=== PATIENT | female | born 1990 | race Caucasian/White ===

== ENCOUNTER 2018-11-24 08:00 | Inpatient (IN) ==
[2018-11-24] MEDS ORDERED: Naloxone 0.4 MG/ML INJ IVP PRN (08:32)
[2018-11-24] MEDS ORDERED: Lidocaine 1% 20 ML MDV INFILT PRN (08:32)
[2018-11-24] MEDS ORDERED: Ondansetron 4 MG/2 ML VIAL IVP PRN (08:32)
[2018-11-24] MEDS ORDERED: Famotidine 20 MG/2 ML VIAL IVP PRN (08:32)
[2018-11-24] MEDS ORDERED: Metoclopramide 10 MG/2 ML VIAL IVP PRN (08:32)
[2018-11-24] MEDS ORDERED: Ringers Solution, Lactated 1,000 ML IVC SCH (08:45)
[2018-11-24] MEDS ORDERED: miSOPROStol 100 MCG TABLET PO ONE (08:45)
--- NOTE | 2018-11-24 08:58 | OB/GYN History & Physical ---
Date of Encounter: 11/24/18 Time of Encounter: 08:58 Assessment and Plan (1) 16 weeks gestation of Current visit: Yes Status: Acute (2) demise before 20 weeks with retention of fetus Current visit: Yes Status: Acute Admit to L&D for IOL Misoprostol 600mcg SL x 1 Recheck cervix in 4 hours [place] monitoring Pain management plan is epidural - may have upon request Anticipate of 12-[address] Escalante is evaluation specialist and is co-managing History of Present Illness Chief complaint: IOL for MAB HPI: Ms. Jarquin is a 28 year old female at 16 weeks 4 days gestation with an estimated date of of 05/07/19 dated by early ultrasound. She presents today for induction of labor secondary to MAB found at visit yesterday. She had been complaining of brownish discharge for the last 3 days in the morning. She reports last night she began cramping and this morning had a larger amount of blood. She was being seen by Dr. Grajeda. records are available electronically and have been reviewed. Labs: O- Rubella immune Varicella immune Serologies unknown Past Med Surg Social Fam HX - Past Medical History Medical history: arthritis Psychiatric history: depression - Past Surgical History Surgical History: cholecystectomy Additional surgical history: wisdom teeth - Social History Smoking Status: Never smoker Smokeless Tobacco Status: No Alcohol use: none Drug use: none - Family History Father Adopted: No Living Status: Still Living Hx Family Cardiac Disorders: No Hx Family Respiratory Disorders: No Hx Family Cancer: No Hx Family GI Disorders: No Hx Family Genitourinary Disorders: No Hx Family Endocrine Disorder: No Hx Family Musculoskeletal Disorders: No Hx Family Neuromuscular Disorders: No Hx Family Neurologic Disorders: No Hx Family HEENT Disorders: No Hx Family Autoimmune Disorders: No Hx Family Reproductive Disorders: No Hx Family Psychosocial Disorders: No Hx Family Medical Disorders: Yes (DVT, PE) Mother Adopted: No Living Status: Still Living Hx Family Cardiac Disorders: Yes (stent placement, HTN) Obstetrical History - Pregnancies : 1 Para: 0 Term: 0 : 0 Ab's: 0 Livin Medications and Allergies Diphenoxylate/Atropine 11/24/18 [History] Tablet 11/24/18 [History] Allergy/AdvReac Type Severity Reaction Status Date / Time No Known Allergies Allergy Verified 11/24/18 08:35 Review of System OB All systems PM: reviewed and no additional remarkable complaints except as stated Exam - Constitutional Constitutional: well developed, well nourished, mild distress - HEENT HEENT: PERRL, Normocephaly, Mucus Membranes Moist - Neck Neck exam: full ROM - Lungs Respiratory exam: CTAB - Cardiovascular Cardiovascular exam: RRR, +S1, +S2 - Breasts Breast: bilateral: normal - Abdomen Abdomen: Present: bowel sounds normal, gravid, non tender - Extremities Extremities exam: full ROM, normal capillary refill, normal inspection - Vulva Vulva: bilateral: normal - Vagina Vagina: Present: normal moisture - Cervix Dilation: 0 Effacement: 0 Station: -4 Results All other labs normal. - VTE Reasons for not Prescribing Prophylaxis: Treatment not Indicated - Low risk for VTE
[2018-11-24 09:14] LABS: Basophils % 0.3 %; Eosinophils # 0.1 K/mcL (0.0-0.6); Eosinophils % 1.3 %; Hematocrit 39.2 % (35.3-44.9); Hemoglobin 13.2 g/dL (11.5-15.4); Immature Granulocytes % 0.3 % (0-4); Lymphocytes # 1.7 K/mcL (0.6-4.6); Mean Corpuscular HGB Conc 33.7 g/dL (31.6-35.5); Mean Corpuscular Hemoglobin 29.5 pg (28.0-33.3); Mean Corpuscular Volume 87.7 fL (83.0-100.0); Mean Platelet Volume 10.1 fL (9.4-12.4); Monocytes # 0.4 K/mcL (0.0-1.3); Monocytes % 4.6 %; Neutrophils # 5.4 K/mcL (1.6-8.9); Platelet Count 284 K/mcL (140-400); Red Blood Count 4.47 M/mcL (3.82-4.97); Red Cell Distribution Width 13.4 % (11.5-14.5); Segmented Neutrophils % 71.5 %; White Blood Count 7.5 K/mcL (4.3-11.1)
[2018-11-24] MEDS ORDERED: Diphenoxylate/Atropine 1 TAB TABLET PO ONE (12:30)
[2018-11-24] MEDS: *HR* Nalbuphine 10 MG/ML AMPUL IVP PRN ×2 (12:58→18:51)
[2018-11-24] MEDS ORDERED: miSOPROStol 100 MCG TABLET PO SCH (13:48)
[2018-11-24] MEDS: miSOPROStol 100 MCG TABLET PO SCH ×2 (14:21→17:24)
--- NOTE | 2018-11-24 19:31 | Event Note ---
Date of Encounter: 11/24/18 Time of Encounter: 19:26 28yo female admitted for SAB measuring ~11+1wks GA by CRL, per due date should be 16+wks GA. Patient has been admitted with buccal misoprostol q4hr (400mcg) with a loading dose of 600mcg buccally. Because the patient was admitted with a CRL measuring 11+1wks GA and has been consistently failing medical management. Plan was made for the performance of a SUCTION D&C. Consent was signed. Minimal bleeding was appreciated (dark brown blood in vault). MD ZENON
[2018-11-24] MEDS ORDERED: Doxycycline 100 MG in 0.9 % Sodium Chloride Mini Bag 100 ML IVPB ONE (19:32)
[2018-11-24] MEDS ORDERED: *HR* HYDROmorphone (PF) 1 MG/ML SYRINGE IVP ONE (19:40)
--- NOTE | 2018-11-24 19:45 | Anesthesia Evaluation PreOp ---
Date of Encounter: 11/24/18 Time of Encounter: 19:45 - Past History Planned Operation: suction DC Cardiac History: Denies any Significant Hx Pulmonary History: Denies Any Significant HX [employer] History: Denies Any Significant HX Other Medical History: Denies Any Significant HX Anesthesia History: No Prior Anesthetic Complications : Yes Test: Positive Alcohol Use: none Drug use: none Medications and Allergies Diphenoxylate/Atropine 11/24/18 [History] Tablet 11/24/18 [History] Allergy/AdvReac Type Severity Reaction Status Date / Time No Known Allergies Allergy Verified 11/24/18 08:35 - Meds/Allergy Pre-op Review Medications Reviewed: Yes Allergies Reviewed: Yes Beta Blockers on Current Med List: No Anesthesia Results - Labs 11/24/18 08:34 Anesthesia Exam - HEENT Pupil (Motor): Pupils equal Mallampati: II Teeth: Normal Oral Opening: Greater than 3 - [employer] LOC: Oriented [employer] Motor: Normal RUE, Normal LUE, Normal RLE, Normal LLE, Normal Face [employer] Sensory: Normal: RUE, LUE, RLE, LLE, Face - Cardiac Rhythm: Regular Murmur: None JVD: No Carotid Bruit: No - Pulmonary Breath Sounds: bilateral Clear Respiratory Effort: Symmetrical Anesthesia Assess/Plan ASA Score: 1 Level of consciousness: Cooperative Anesthetic Plan: General
[2018-11-24] MEDS ORDERED: *HR* Propofol 200 MG/20 ML VIAL IVP ONE (20:00)
[2018-11-24] MEDS ORDERED: *HR* Midazolam HCl 2 MG/2 ML VIAL ONE (20:00)
[2018-11-24] MEDS ORDERED: *HR* FentaNYL (PF) 100 MCG/2 ML VIAL ONE ×2 (20:00→20:32)
[2018-11-24] MEDS ORDERED: *HR* Succinylcholine 200 MG/10 ML VIAL IVP ONE (20:02)
[2018-11-24] MEDS ORDERED: Lidocaine -MPF 2% 5 ML VIAL ONE (20:02)
[2018-11-24] MEDS ORDERED: *HR* Rocuronium Bromide 50 MG/5 ML VIAL ONE (20:03)
[2018-11-24] MEDS ORDERED: Acetaminophen IV 1,000 MG/100 ML INFUS..BTL IVPB ONE (20:10)
[2018-11-24] MEDS ORDERED: *HR* Promethazine 25 MG/ML VIAL IVP PRN (20:10)
[2018-11-24] MEDS ORDERED: Ondansetron 4 MG/2 ML VIAL IVP ONE (20:10)
[2018-11-24] MEDS ORDERED: *HR* Meperidine 25 MG/ML SYRINGE IVP PRN (20:10)
[2018-11-24] MEDS ORDERED: *HR* HYDROmorphone (PF) 1 MG/ML SYRINGE IVP PRN (20:10)
[2018-11-24] MEDS ORDERED: Ketorolac 30 MG/ML VIAL ONE (20:26)
[2018-11-24] MEDS ORDERED: Ondansetron 4 MG/2 ML VIAL ONE (20:26)
[2018-11-24] MEDS ORDERED: Dexamethasone 4 MG/ML VIAL ONE (20:26)
--- NOTE | 2018-11-24 20:55 | OB/GYN Procedure Note ---
Suction D&C - Diagnosis Date of procedure: 11/24/18 Pre-op diagnosis: missed Post-op diagnosis: same - Procedure Procedure: suction D&C Surgeon: Kerri Escalante Was there an office services assistant present: No Anesthesia Type: General Estimated blood loss (cc): 100 Complications: none Fluids: crystalloid Specimen: products of conception Disposition: floor Narrative: OPERATIVE REPORT: PATIENT NAME: ELE RODRIGUEZ : 1990 DIAGNOSIS: 1. MISSED AB MEASURING 11+1WKS GA POSTOPERATIVE DIAGNOSIS: SAME PROCEDURE: 1. SUCTION DILATION AND CURETTAGE EBL: 100ML IVF: 400ML UOP: 75ML YELLOW SPECIMENS: 1. PRODUCTS OF CONCEPTION CONSENT: Consent was signed for suction dilation and curettage after attempted delivery of products by medical management of buccal misoprostol. All risks were discussed with the patient including bleeding, infection, and perforation. One dose of IV doxycycline was administered to the patient preoperatively. PROCEDURE DETAILS: Patient was taken to OR where general anesthesia was found to be adequate. Patient was placed in the dorsal lithotomy position. Timeout was performed. Products of conception were found to be partially in vagina (intact) with the placenta and sac still in the uterus. We detached the fetus from the placenta, then removed the remaining contents from the cervix using gentle and slow traction with ringed forceps. All products were collected and sent to pathology for further examination. Using a weighted speculum, we then turned our attention to the cervix and grasped the anterior lip using a single-toothed tenaculum, pulling the cervix distally and straightening the cavity. We then used the suction dilated and curettage (7 luxembourger) to evacuate the remaining contents of the uterus. Multiple passes were taken and adequate placental tissue was removed, and also sent to pathology. We also use sharp curettage with 3 passes circumferentially until contraction of the uterus was appreciated. Hemostasis was found. Speculum and single-toothed tenaculum was then removed from the vagina. Cervix was hemostatic. All counts were correct x3. I was present for the entirety of the procedure, the patient tolerated the procedure well and recovered in the postoperative suite. MD ZENON
[2018-11-24] MEDS ORDERED: Rho Immune Globulin 1,500 UNIT SYRINGE IM ONE (21:59)
--- NOTE | 2018-11-24 22:45 | Discharge Summary ---
Date of Encounter: 11/24/18 Time of Encounter: 22:41 - Discharge Diagnosis (1) demise before 20 weeks with retention of fetus Priority: Primary Status: Acute Comments: 28yo female who presents at 16+1 by dates, measuring 11+1 wks GA by TVUS with a missed AB. 1. Missed AB - patient admitted on 11/23/2018 - started on buccal miso: 600mcg, 400mcg, 400mcg - patient was given multiple doses of nubain for pain management - still without bleeding, patient desired for suction D&C - D&C performed, uncomplicated with minimal bleeding - products of conception sent to pathology for review - given preoperative and postoperative doxycycline ABx (rx sent home with patient) - for pain management: given 5 tablets of 5mg oxycodone q6hr - otherwise recommendation for IBUprofen/tylenol - will have patient follow up in office next week to discuss contraception - recommendation at this time for pelvic rest until next appointment - RH positive, no rhogam required 2. MWB - normotensive - pain controlled s/p D&C - DC to home with f/u in 1 week in office Dispo: DC to home today s/p D&C, given rx for Doxycycline and Oxycodone (5# only), will f/u in office for postoperative visit to discuss contraception. MD ZENON - Discharge Medications Prescriptions: New Doxycycline 100 mg PO BID 7 Days #14 capsule Oxycodone HCl 5 mg PO Q6H 2 Days #5 tablet No Action Tablet Diphenoxylate/Atropine Home Medications: Diphenoxylate/Atropine 11/24/18 [History] Doxycycline 100 mg PO BID 7 Days #14 capsule 11/24/18 [Rx] Oxycodone HCl 5 mg PO Q6H 2 Days #5 tablet 11/24/18 [Rx] Tablet 11/24/18 [History] Allergies/Adverse Reactions: Allergy/AdvReac Type Severity Reaction Status Date / Time No Known Allergies Allergy Verified 11/24/18 08:35 Data Procedures and tests throughout hospitalization: Laboratory Tests 11/24/18 08:34 WBC 7.5 RBC 4.47 Hgb 13.2 Hct 39.2 MCV 87.7 MCH 29.5 MCHC 33.7 RDW 13.4 Plt Count 284 MPV 10.1 Immature Gran % 0.3 Seg Neutrophils % 71.5 Lymphocytes % 22.0 Monocytes % 4.6 Eosinophils % 1.3 Basophils % 0.3 Neutrophils # 5.4 Lymphocytes # 1.7 Monocytes # 0.4 Eosinophils # 0.1 Basophils # 0.0 Labs on day of discharge: Labs from last 24 hours 11/24/18 08:34 WBC 7.5 RBC 4.47 Hgb 13.2 Hct 39.2 MCV 87.7 MCH 29.5 MCHC 33.7 RDW 13.4 Plt Count 284 MPV 10.1 Immature Gran % 0.3 Seg Neutrophils % 71.5 Lymphocytes % 22.0 Monocytes % 4.6 Eosinophils % 1.3 Basophils % 0.3 Neutrophils # 5.4 Lymphocytes # 1.7 Monocytes # 0.4 Eosinophils # 0.1 Basophils # 0.0 Date of admission: 11/24/18 08:16 Primary care physician: PCP NONE Discharging clinician: Kerri Escalante Anticipated date of discharge: 11/24/18 - Patient Status Disposition: Home, Self-Care Condition: Good Functional capacity at discharge: independent ambulation Overall status at discharge: patient is progressing back to baseline - Discharge Instructions Follow Up With: NONE,PCP [Primary Care Provider] - Hospital Course PARER Time Attestation: Total time spent providing and/or coordinating discharge services: Exam - Constitutional General appearance IM: A&O X 3 - Respiratory Respiratory exam: Present: CTAB - Cardiovascular Cardiovascular exam IM: Present: RRR - GI/Abdominal Incision: normal, dry, intact - Rectal Rectal exam: deferred - Neurological Exam Neurological exam: CN II-XII intact, oriented X3 - VTE Reasons for not Prescribing Prophylaxis: Treatment not Indicated - Low risk for VTE
== END 2018-11-24 23:20 | disposition home or self-care (01) | DRG 770 ==
LOC: 1NENULAB 08:16
PROVIDERS: ADMIT Student in an Organized Health Care Education/Training Program; ATTEND Student in an Organized Health Care Education/Training Program

== ENCOUNTER 2020-06-29 09:47 | Inpatient (IN) ==
[2020-06-29] MEDS ORDERED: Famotidine 20 MG/2 ML VIAL IVP PRN (10:17)
[2020-06-29] MEDS ORDERED: *HR* Nalbuphine 10 MG/ML AMPUL IV PRN (10:17)
[2020-06-29] MEDS ORDERED: Naloxone 0.4 MG/ML INJ IVP PRN (10:17)
[2020-06-29] MEDS ORDERED: miSOPROStoL 25 MCG TABLET VG PRN (10:17)
[2020-06-29] MEDS ORDERED: Metoclopramide 10 MG/2 ML VIAL IVP PRN (10:17)
[2020-06-29] MEDS ORDERED: Lidocaine 1% 20 ML MDV INFILT PRN (10:17)
[2020-06-29] MEDS ORDERED: Azithromycin 500 MG in 0.9 % Sodium Chloride 250 ML IVPB PRN (10:17)
[2020-06-29] MEDS ORDERED: Ondansetron 4 MG/2 ML VIAL IVP PRN (10:17)
[2020-06-29] MEDS ORDERED: Oxytocin 20 units/ LR 1000 mL 20 UNIT/1,000 ML BAG IVC SCH (10:30)
[2020-06-29] MEDS ORDERED: Ringers Solution, Lactated 1,000 ML IVC SCH (10:30)
[2020-06-29] MEDS ORDERED: EPHEDrine 50 MG/ML VIAL IVP PRN (10:48)
[2020-06-29 10:54] LABS: Basophils % 0.2 %; Eosinophils # 0.1 K/mcL (0.0-0.6); Eosinophils % 0.4 %; Hemoglobin 11.2 g/dL (11.5-15.4); Immature Granulocytes % 0.9 % (0-4); Lymphocytes # 1.9 K/mcL (0.6-4.6); Lymphocytes % 16.8 %; Mean Corpuscular Hemoglobin 27.1 pg (28.0-33.3); Mean Corpuscular Volume 84.7 fL (83.0-100.0); Monocytes # 0.5 K/mcL (0.0-1.3); Monocytes % 4.6 %; Neutrophils # 8.7 K/mcL (1.6-8.9); Platelet Count 297 K/mcL (140-400); Red Blood Count 4.13 M/mcL (3.82-4.97); Red Cell Distribution Width 14.3 % (11.5-14.5); Segmented Neutrophils % 77.1 %; White Blood Count 11.3 K/mcL (4.3-11.1)
[2020-06-29] MEDS ORDERED: Penicillin G Potassium 5,000,000 UNIT in 0.9 % Sodium Chloride Mini Bag 100 ML IVPB ONE (10:57)
[2020-06-29] MEDS ORDERED: Epidural Premix (fent/bupiv) 110 ML EP SCH (11:00)
[2020-06-29 11:04] LABS: Amphetamine Screen,Urine Negative ng/mL (Cutoff=1000); Barbiturate Screen,Urine Negative ng/mL (Cutoff=200); Benzodiazepines Screen,Urine Negative ng/mL (Cutoff=200); Cannabinoid Screen,Urine Negative ng/mL (Cutoff = 50); Cocaine Screen,Urine Negative ng/mL (Cutoff= 300); Opiate Screen,Urine Negative ng/mL (Cutoff=300); Phencyclidine Screen,Urine Negative ng/mL (Cutoff=25)
[2020-06-29 13:15] LABS: Adenovirus Not Detected (Not Detect); Coronavirus 229E Not Detected (Not Detect); Coronavirus HKU1 Not Detected (Not Detect); Coronavirus NL63 Not Detected (Not Detect); Coronavirus OC43 Not Detected (Not Detect); Human Metapneumovirus Not Detected (Not Detect); Human Rhinovirus/Enterovirus Not Detected (Not Detect); Influenza A Subtype 2009 H1 Not Detected (Not Detect); SARS-CoV-2 Not Detected (Not Detect)
[2020-06-29 13:16] LABS: Bordetella Pertussis Not Detected (Not Detect); Chlamydophila pneumoniae Not Detected (Not Detect); Influenza B Not Detected (Not Detect); Mycoplasma pneumoniae Not Detected (Not Detect); Parainfluenza Virus 1 Not Detected (Not Detect); Parainfluenza Virus 2 Not Detected (Not Detect); Parainfluenza Virus 3 Not Detected (Not Detect); Parainfluenza Virus 4 Not Detected (Not Detect); Respiratory Syncytial Virus Not Detected (Not Detect)
[2020-06-29] MEDS: Penicillin G Potassium 2,500,000 UNIT in 0.9 % Sodium Chloride 100 ML IVPB SCH ×2 (15:45→20:30)
[2020-06-30] MEDS ORDERED: *HR* HYDROcodone/Acet 5/325 mg TABLET PO PRN (03:45)
[2020-06-30] MEDS ORDERED: Oxytocin 20 units/ LR 1000 mL 20 UNIT/1,000 ML BAG IVC SCH (03:45)
[2020-06-30] MEDS ORDERED: Rho Immune Globulin 1,500 UNIT SYRINGE IM PRN (03:45)
[2020-06-30] MEDS ORDERED: Benzocaine/Menthol 56 GM AEROSOL SPRAY TP PRN (03:45)
[2020-06-30] MEDS ORDERED: Lanolin 7 G OINT...G. TP PRN (03:45)
[2020-06-30] MEDS: Acetaminophen 325 MG TABLET PO PRN ×3 (04:12→20:20)
[2020-06-30 05:19] LABS: Basophils % 0.1 %; Mean Platelet Volume 10.2 fL (9.4-12.4); Red Blood Count 3.88 M/mcL (3.82-4.97)
[2020-06-30 05:21] LABS: Hematocrit 32.5 % (35.3-44.9); Hemoglobin 10.2 g/dL (11.5-15.4); Immature Granulocytes % 1.2 % (0-4); Lymphocytes # 1.7 K/mcL (0.6-4.6); Lymphocytes % 5.4 %; Mean Corpuscular HGB Conc 31.4 g/dL (31.6-35.5); Mean Corpuscular Hemoglobin 26.3 pg (28.0-33.3); Mean Corpuscular Volume 83.8 fL (83.0-100.0); Monocytes # 1.3 K/mcL (0.0-1.3); Monocytes % 4.3 %; Platelet Count 294 K/mcL (140-400); Red Cell Distribution Width 14.4 % (11.5-14.5)
[2020-06-30 05:28] LABS: Neutrophils # 27.2 K/mcL (1.6-8.9); White Blood Count 30.5 K/mcL (4.3-11.1)
[2020-06-30] MEDS: Prenatal Vit/FA 1 EACH TABLET PO SCH (08:18)
[2020-06-30] MEDS: Ibuprofen 600 MG TABLET PO PRN ×2 (08:18→14:42)
[2020-07-01] MEDS: Ibuprofen 600 MG TABLET PO PRN ×2 (00:24→08:40)
[2020-07-01 08:30] VITALS: BP 117/69
[2020-07-01] MEDS: Prenatal Vit/FA 1 EACH TABLET PO SCH (08:40)
[2020-07-01] MEDS: Acetaminophen 325 MG TABLET PO PRN (08:41)
[2020-07-01 09:32] LABS: Basophils % 0.3 %; Eosinophils # 0.1 K/mcL (0.0-0.6); Eosinophils % 0.6 %; Hematocrit 31.8 % (35.3-44.9); Immature Granulocytes % 0.8 % (0-4); Lymphocytes % 12.7 %; Mean Corpuscular HGB Conc 31.4 g/dL (31.6-35.5); Mean Corpuscular Hemoglobin 27.3 pg (28.0-33.3); Mean Corpuscular Volume 86.9 fL (83.0-100.0); Monocytes # 0.7 K/mcL (0.0-1.3); Monocytes % 4.3 %; Neutrophils # 12.8 K/mcL (1.6-8.9); Platelet Count 273 K/mcL (140-400); Red Blood Count 3.66 M/mcL (3.82-4.97); Red Cell Distribution Width 14.6 % (11.5-14.5); Segmented Neutrophils % 81.3 %; White Blood Count 15.8 K/mcL (4.3-11.1)
== END 2020-07-01 10:49 | disposition home or self-care (01) | DRG 807 ==
LOC: 1NENULAB 09:47 → 1NENUOBS 06-30 03:44
PROVIDERS: ADMIT Obstetrics & Gynecology; ATTEND Obstetrics & Gynecology